=== PATIENT | male | born 1960 | race Caucasian/White ===

== ENCOUNTER 2018-09-15 23:50 | Emergency (ER) | payer MEDICAID ==
[~2018-09-15] VITALS: Ht 185.4 cm; Wt 97.5 kg
[2018-09-16 00:32] VITALS: BP 139/93
[2018-09-16 01:23] LABS: Basophils # (auto) 0.1 uL; Basophils % (auto) 1.4 % (0.0-2.0); Eosinophils # (auto) 0 uL; Eosinophils % (auto) 0.1 % (0.0-7.0); Hematocrit 47.4 % (41.0-53.0); Hemoglobin 16.3 g/dL (13.5-17.5); Lymphocytes # (auto) 1.5 uL; Lymphocytes % (auto) 17.2 % (10.0-50.0); Mean Corpuscular Hemoglobin 30.6 pg (28.0-32.0); Mean Corpuscular Hgb Conc. 34.4 g/dL (32.0-36.0); Monocytes # (auto) 0.7 uL; Monocytes % (auto) 7.8 % (0.0-12.0); Neutrophils # (auto) 6.3 uL; Neutrophils % (auto) 73.5 % (37.0-80.0); Platelet Count (auto) 207 10^3/uL (140-450); Red Blood Cells 5.32 10^6/uL (4.5-5.90); Red Cell Distribution Width 13.6 % (11.8-14.3); White Blood Cell 8.6 10^3/uL (4.4-10.8)
[2018-09-16 01:28] LABS: Urine Bacteria NONE SEEN /hpf (None Seen); Urine Blood Negative /uL (Negative); Urine Mucus FEW (None Seen); Urine Specific Gravity 1.039 (1.001-1.035); Urine WBC <1 /hpf (0 - 3)
[2018-09-16 01:43] LABS: Alcohol, Urine < 3.0 mg/dL (0-5); Amphetamine Screen, Urine POSITIVE (NEGATIVE); Barbiturate Scree,Urine NEGATIVE (NEGATIVE); Benzodiazephine Screen, Urine NEGATIVE (NEGATIVE); Cannabinoid Screen, Urine NEGATIVE (NEGATIVE); Cocaine Screen, Urine NEGATIVE (NEGATIVE); Phencyclidine Screen, Urine NEGATIVE (NEGATIVE)
[2018-09-16 01:46] LABS: Albumin 4.4 g/dL (3.4-5.0); Anion Gap 11 (5-15); Blood Alcohol < 3.0 mg/dL (0-5); Blood Urea Nitrogen 14 mg/dL (7-18); Calcium 9.4 mg/dL (8.5-10.1); Carbon Dioxide 21 mmol/L (21-32); Chloride 104 mmol/L (98-107); Glucose 245 mg/dL (74-106); Potassium 3.6 mmol/L (3.5-5.1); Sodium 136 mmol/L (136-145)
[2018-09-16 01:48] LABS: Alanine Aminotransferase 26 U/L (16-61); Aspartate Aminotransferase 22 U/L (15-37); BUN/Creatinine Ratio 11.6; GFR African American 79 mL/min; GFR Non-African American 65 mL/min
[2018-09-16 01:49] LABS: Opiate Scree,Urine NEGATIVE (NEGATIVE)
[2018-09-16 01:50] LABS: Salicylate < 1.7 mg/dL (2.8-20.0)
[2018-09-16 01:56] LABS: Alkaline Phosphatase 69 U/L (45-117); Total Protein 9.8 g/dL (6.4-8.2)
[2018-09-16 02:05] LABS: Acetaminophen < 2.0 ug/mL (10-30)
== END 2018-09-16 05:47 | disposition left against medical advice (07) ==
LOC: ER 23:50
DX: F22 Delusional disorders (principal); Z53.21 Procedure and treatment not carried out due to patient leaving prior to being seen by health care provider
CPT/HCPCS: 36415; 80053; 80307; 80320; 80329; 81001; 85025

== ENCOUNTER 2019-10-18 09:49 | Inpatient (IN) | payer MEDICAID ==
[~2019-10-18] VITALS: Ht 185.4 cm; Wt 115.1 kg
[2019-10-18] MEDS ORDERED: ACETAMINOPHEN 325 MG TAB PO ONE (10:29)
[2019-10-18] MEDS ORDERED: ACETAMINOPHEN 650 mg PER 20 mL UD PO ONE (10:30)
[2019-10-18] MEDS ORDERED: SODIUM CHLORIDE 0.9% 1,000 ML IV ONE (10:50)
[2019-10-18] MEDS ORDERED: DexAMETHasone SOD PHOS 10MG/1ML VIAL INJ IV ONE (11:00)
[2019-10-18] MEDS ORDERED: hydrOXYchloroQUINE SULFATE 200 MG TAB PO ONE (11:30)
[2019-10-18] MEDS ORDERED: DOXYCYCLINE 100 MG TAB/CAP PO ONE (11:30)
[2019-10-18 12:26] LABS: Basophils # (auto) 0 10 ^3/uL (0-0.2); Basophils % (auto) 0.4 % (0.0-2.0); Eosinophils # (auto) 0 10 ^3/uL (0-0.8); Hematocrit 42.3 % (41.0-53.0); Hemoglobin 14.2 g/dL (13.5-17.5); Lymphocytes # (auto) 0.4 10 ^3/uL (0.4-5.4); Lymphocytes % (auto) 10.4 % (10.0-50.0); Mean Corpuscular Hemoglobin 28.9 pg (28.0-32.0); Mean Corpuscular Hgb Conc. 33.5 g/dL (32.0-36.0); Mean Corpuscular Volume 86.2 fL (80.0-100.0); Monocytes # (auto) 0.2 10 ^3/uL (0-1.3); Monocytes % (auto) 4.3 % (0.0-12.0); Neutrophils # (auto) 3.5 10 ^3/uL (1.6-8.6); Neutrophils % (auto) 84.9 % (37.0-80.0); Nucleated Red Blood Cells % 0.1 %; Platelet Count (auto) 177 10^3/uL (140-450); Red Cell Distribution Width 12.9 % (11.8-14.3); White Blood Cell 4.1 10^3/uL (4.4-10.8)
[2019-10-18 12:45] LABS: Albumin 2.6 g/dL (3.4-5.0); Anion Gap 11 (5-15); BUN/Creatinine Ratio 10.5; Blood Urea Nitrogen 9 mg/dL (7-18); Calcium 7.7 mg/dL (8.5-10.1); Carbon Dioxide 20 mmol/L (21-32); Chloride 97 mmol/L (98-107); GFR African American 117 mL/min; GFR Non-African American 97 mL/min; Glucose 275 mg/dL (74-106); Potassium 3.4 mmol/L (3.5-5.1); Sodium 128 mmol/L (136-145)
[2019-10-18 12:49] LABS: Alanine Aminotransferase 33 U/L (16-61); Alkaline Phosphatase 59 U/L (45-117); Aspartate Aminotransferase 40 U/L (15-37); Bilirubin, Total 0.7 mg/dL (0.2-1.0); Total Protein 7.8 g/dL (6.4-8.2)
[2019-10-18 13:07] LABS: CRP High Sensitivity 10.1 mg/dL (< 0.3)
[2019-10-18] MEDS ORDERED: MORPHINE SULF INJ 2 MG/ML SYRINGE 1ML IV PRN (15:15)
[2019-10-18] MEDS ORDERED: NITROGLYCERIN 0.4 MG SL TAB SL PRN (15:15)
[2019-10-18] MEDS ORDERED: DEXTROSE (50%) 50ML SYRG IV PRN (15:15)
[2019-10-18] MEDS ORDERED: ACETAMINOPHEN 500 MG TAB PO PRN (15:15)
[2019-10-18 15:38] VITALS: BP 121/73
[2019-10-18] MEDS: SOD CHL 0.9%/ KCL 20MEQ 1,000 ML IV SCH (16:41)
[2019-10-18] MEDS ORDERED: METF-372 PO (16:52)
[2019-10-18] MEDS ORDERED: DIVA1TAB59 PO (16:52)
[2019-10-18] MEDS ORDERED: GLIP5TAB12 PO (16:52)
[2019-10-18] MEDS ORDERED: SERT100T PO (16:52)
[2019-10-18] MEDS ORDERED: QUET200T30 PO (16:54)
[2019-10-18] MEDS ORDERED: ERGO1CAP12 PO (17:01)
[2019-10-18] MEDS ORDERED: IBUP200C95 PO (17:02)
[2019-10-18] MEDS: ACCU-CHEK COMFORT CURVE STRIP VI SCH (19:46)
[2019-10-18] MEDS: InsuLIN REG 1unit/0.01ml Soln (100units/ml) SC SCH (19:59)
--- NOTE | 2019-10-18 20:55 | NUR ---
Telemetry admit from ER ORESTES BISHOP admitted to Telemetry unit. Patient oriented to Vishal Cuevas, primary RN, unit, room, bed, and unit policies regarding patient care and visiting hours. Patient now on continuous telemetry monitoring, tele box #10 and telemetry reading on arrival to unit is SR 65. Patient placed on 2L oxygen, weighed by bed scale and encouraged to call if they need something. Patient denies any pain. He states that he feels SOB. Vital sign: Temp 97.8, HR 60, BP 120/75, RR 20, and O2 95. All questions and concerns addressed, patient verbalized understanding.
[2019-10-18 21:00] VITALS: BP 120/75
[2019-10-18] MEDS: DOXYCYCLINE 100MG/250ML 250 ML IV SCH (22:00)
[2019-10-18 23:06] VITALS: BP 120/75
[2019-10-18] MEDS: ALBUTEROL SULF HFA 90MCG INH 200DOSE IN SCH (23:10)
[2019-10-18] MEDS: BUDESONIDE (INHALATION) 180 MCG IH IN SCH (23:10)
[2019-10-19] VITALS (7 sets, daily range): BP systolic 108–115; BP diastolic 63–76
[2019-10-19] MEDS: ACCU-CHEK COMFORT CURVE STRIP VI SCH ×4 (00:15→18:00)
[2019-10-19] MEDS: InsuLIN REG 1unit/0.01ml Soln (100units/ml) SC SCH ×4 (00:15→17:59)
[2019-10-19] MEDS: BUDESONIDE (INHALATION) 180 MCG IH IN SCH ×2 (05:46→22:00)
[2019-10-19] MEDS: ALBUTEROL SULF HFA 90MCG INH 200DOSE IN SCH ×3 (05:46→22:00)
[2019-10-19 08:05] LABS: Urine Bacteria NONE SEEN /hpf (None Seen); Urine Blood Negative /uL (Negative); Urine Specific Gravity 1.032 (1.001-1.035); Urine WBC 1 /hpf (0 - 3)
[2019-10-19] MEDS: SOD CHL 0.9%/ KCL 20MEQ 1,000 ML IV SCH (08:23)
[2019-10-19] MEDS: DexAMETHasone SOD PHOS 10MG/1ML VIAL INJ IV SCH (09:55)
[2019-10-19] MEDS: DOXYCYCLINE 100MG/250ML 250 ML IV SCH ×2 (09:55→21:57)
[2019-10-19] MEDS: ASCORBIC ACID 1,000 MG TAB PO SCH (09:56)
[2019-10-19] MEDS: ZINC SULFATE 220mg CAP or TAB PO SCH (09:56)
[2019-10-19] MEDS: ENOXAPARIN SOD 40 MG/0.4 ML SYRINGE SC SCH (09:56)
[2019-10-19] MEDS: CHOLECALCIFEROL (VITD3) 2,000 UNIT CAP PO SCH (09:56)
--- NOTE | 2019-10-19 12:15 | NUR ---
pt refused to sign consent for remdesivir, pt stated he do not see the benefit of the medication, pharmacy made aware. Will notify .
[2019-10-19 12:25] LABS: Basophils # (auto) 0 10 ^3/uL (0-0.2); Basophils % (auto) 0.2 % (0.0-2.0); Eosinophils # (auto) 0 10 ^3/uL (0-0.8); Hematocrit 41.5 % (41.0-53.0); Lymphocytes # (auto) 0.7 10 ^3/uL (0.4-5.4); Lymphocytes % (auto) 10.7 % (10.0-50.0); Mean Corpuscular Hemoglobin 28.9 pg (28.0-32.0); Mean Corpuscular Hgb Conc. 33.6 g/dL (32.0-36.0); Monocytes # (auto) 0.3 10 ^3/uL (0-1.3); Neutrophils # (auto) 5.4 10 ^3/uL (1.6-8.6); Neutrophils % (auto) 84.1 % (37.0-80.0); Platelet Count (auto) 206 10^3/uL (140-450); Red Blood Cells 4.83 10^6/uL (4.5-5.90); Red Cell Distribution Width 13.1 % (11.8-14.3); White Blood Cell 6.4 10^3/uL (4.4-10.8)
[2019-10-19 12:42] LABS: Albumin 2.5 g/dL (3.4-5.0); Calcium 8.4 mg/dL (8.5-10.1)
[2019-10-19 12:45] LABS: BUN/Creatinine Ratio 20.7; Bilirubin, Total 0.5 mg/dL (0.2-1.0); Total Protein 8.2 g/dL (6.4-8.2)
--- NOTE | 2019-10-19 13:30 | NUR ---
Dr. Bellamy at bedside made aware pt refused remdesivir because he do not see the benefits of the medication, Dr. Bellamy explained why he ordered the medication, pt verbalized understanding and agree to get the medication. pt refused convalescent plasma transfusion, Dr. Bellamy is aware.
--- NOTE | 2019-10-19 13:35 | NUR ---
Dr. Bellamy ordered to continue pt's home medication divalproex, glipizide, and zoloft but not for metformin and seroquel.
--- NOTE | 2019-10-19 13:40 | NUR ---
pt sign the consent for Remdesivir medication.
[2019-10-19] MEDS ORDERED: REMDESIVIR 200 MG in NS 210ml LOADING DOSE ADULT IV ONE (16:00)
--- NOTE | 2019-10-19 19:12 | NUR ---
Opening Shift Note Assumed care of patient. Patient is awake, alert, and oriented x 4. No S/S of respiratory distress/SOB and pain noted or reported. Respirations are regular and non-labored. On 1 LPM via NC with SpO2 95%. Bed in lowest position, brakes locked, side rail up X 2, call light within reach. POC discussed with the patient. Patient instructed to call for assistance as needed. Will continue to monitor for changes Q1hr and PRN.
--- NOTE | 2019-10-19 19:15 | NUR ---
diet texture changed to chopped fine, pt has no denture and unable to chew solid foods.
[2019-10-19] MEDS: INSULIN 70/30 1unit/0.01ml Susp (100units/ml) SC SCH (22:03)
[2019-10-20] VITALS (9 sets, daily range): BP systolic 91–149; BP diastolic 55–84
[2019-10-20] MEDS: ACCU-CHEK COMFORT CURVE STRIP VI SCH ×4 (00:10→17:36)
[2019-10-20] MEDS: InsuLIN REG 1unit/0.01ml Soln (100units/ml) SC SCH ×4 (00:14→17:38)
[2019-10-20] MEDS: ALBUTEROL SULF HFA 90MCG INH 200DOSE IN SCH ×3 (06:43→22:04)
[2019-10-20 07:00] LABS: Basophils # (auto) 0 10 ^3/uL (0-0.2); Basophils % (auto) 0.2 % (0.0-2.0); Eosinophils # (auto) 0 10 ^3/uL (0-0.8); Hemoglobin 14.2 g/dL (13.5-17.5); Lymphocytes # (auto) 0.7 10 ^3/uL (0.4-5.4); Lymphocytes % (auto) 9.3 % (10.0-50.0); Mean Corpuscular Hemoglobin 29.3 pg (28.0-32.0); Mean Corpuscular Hgb Conc. 33.8 g/dL (32.0-36.0); Mean Corpuscular Volume 86.7 fL (80.0-100.0); Monocytes # (auto) 0.4 10 ^3/uL (0-1.3); Monocytes % (auto) 5.4 % (0.0-12.0); Neutrophils # (auto) 6.1 10 ^3/uL (1.6-8.6); Neutrophils % (auto) 85.1 % (37.0-80.0); Nucleated Red Blood Cells % 0.2 %; Platelet Count (auto) 244 10^3/uL (140-450); Red Blood Cells 4.84 10^6/uL (4.5-5.90); Red Cell Distribution Width 13.3 % (11.8-14.3); White Blood Cell 7.1 10^3/uL (4.4-10.8)
[2019-10-20 07:18] LABS: Albumin 2.5 g/dL (3.4-5.0); Calcium 8.5 mg/dL (8.5-10.1); Magnesium 2.7 mg/dL (1.6-2.6); Potassium 3.4 mmol/L (3.5-5.1)
[2019-10-20 07:26] LABS: BUN/Creatinine Ratio 19.3; Bilirubin, Total 0.5 mg/dL (0.2-1.0); CRP High Sensitivity 6.49 mg/dL (< 0.3); Total Protein 7.9 g/dL (6.4-8.2)
[2019-10-20] MEDS: BUDESONIDE (INHALATION) 180 MCG IH IN SCH ×2 (07:42→22:04)
[2019-10-20] MEDS ORDERED: POTASSIUM CHL 20 Meq TABLET PO ONE (10:00)
[2019-10-20] MEDS: DOXYCYCLINE 100MG/250ML 250 ML IV SCH ×2 (10:50→21:56)
[2019-10-20] MEDS: DexAMETHasone SOD PHOS 10MG/1ML VIAL INJ IV SCH (10:50)
[2019-10-20] MEDS: ZINC SULFATE 220mg CAP or TAB PO SCH (10:51)
[2019-10-20] MEDS: ASCORBIC ACID 1,000 MG TAB PO SCH (10:51)
[2019-10-20] MEDS: CHOLECALCIFEROL (VITD3) 2,000 UNIT CAP PO SCH (10:51)
[2019-10-20] MEDS: glipiZIDE 5 MG TAB PO SCH (10:51)
[2019-10-20] MEDS: SERTRALINE HCL 50 MG TAB PO SCH (10:52)
[2019-10-20] MEDS: INSULIN 70/30 1unit/0.01ml Susp (100units/ml) SC SCH ×2 (10:52→21:59)
[2019-10-20] MEDS: ENOXAPARIN SOD 40 MG/0.4 ML SYRINGE SC SCH (10:52)
--- NOTE | 2019-10-20 16:30 | NUR ---
IV INITIATED TO R W 20 GAUGE ON 1ST ATTEMPT. PATIENT TOLERATED WELL. PRIOR IV DISCONTINUED DUE TO INFILTRATION.
[2019-10-20] MEDS: REMDESIVIR 100mg in NS 230ml DAILYx4DAYS (NO VENT) IV SCH (16:49)
--- NOTE | 2019-10-20 19:20 | NUR ---
Opening Shift Note Assumed care of patient. Patient is awake, alert, and oriented x 4. No S/S of respiratory distress/SOB and pain noted or reported. Respirations are regular and non-labored. On 1 LPM via NC. Bed in lowest position, brakes locked, side rail up X 2, call light within reach. POC discussed with the patient. Patient instructed to call for assistance as needed. Will continue to monitor for changes Q1hr and PRN.
[2019-10-21] VITALS (10 sets, daily range): BP systolic 96–120; BP diastolic 50–78
[2019-10-21] MEDS: ACCU-CHEK COMFORT CURVE STRIP VI SCH ×4 (00:13→18:00)
[2019-10-21] MEDS: InsuLIN REG 1unit/0.01ml Soln (100units/ml) SC SCH ×4 (00:26→18:01)
[2019-10-21] MEDS: ALBUTEROL SULF HFA 90MCG INH 200DOSE IN SCH ×3 (06:19→21:14)
[2019-10-21 07:52] LABS: Albumin 2.3 g/dL (3.4-5.0); Calcium 8.2 mg/dL (8.5-10.1); Potassium 4.1 mmol/L (3.5-5.1)
[2019-10-21 07:58] LABS: BUN/Creatinine Ratio 15.9; Bilirubin, Total 0.5 mg/dL (0.2-1.0); Total Protein 7.2 g/dL (6.4-8.2)
[2019-10-21] MEDS: BUDESONIDE (INHALATION) 180 MCG IH IN SCH ×2 (08:20→23:13)
[2019-10-21] MEDS: DexAMETHasone SOD PHOS 10MG/1ML VIAL INJ IV SCH (10:42)
[2019-10-21] MEDS: glipiZIDE 5 MG TAB PO SCH (10:42)
[2019-10-21] MEDS: ZINC SULFATE 220mg CAP or TAB PO SCH (10:42)
[2019-10-21] MEDS: DOXYCYCLINE 100MG/250ML 250 ML IV SCH ×2 (10:42→22:21)
[2019-10-21] MEDS: CHOLECALCIFEROL (VITD3) 2,000 UNIT CAP PO SCH (10:43)
[2019-10-21] MEDS: ASCORBIC ACID 1,000 MG TAB PO SCH (10:43)
[2019-10-21] MEDS: SERTRALINE HCL 50 MG TAB PO SCH (10:43)
[2019-10-21] MEDS: INSULIN 70/30 1unit/0.01ml Susp (100units/ml) SC SCH ×2 (10:43→22:45)
[2019-10-21] MEDS: ENOXAPARIN SOD 40 MG/0.4 ML SYRINGE SC SCH (10:44)
--- NOTE | 2019-10-21 11:10 | NUR ---
Darcy HERNANDEZ AT BEDSIDE. INFORMED OF PATIENTS HEART RATE DROPPING TO 38-39BPM WHEN SLEEPING. RECEIVED ORDER FOR EKG. STATED OK TO CONTINUE REMDESIVIR.
--- NOTE | 2019-10-21 13:18 | NUR ---
Nutrition Assessment Notes Please refer to link for full assessment notes. Est Energy needs: [id number] kcals (17-20 kcal/kgBW) Est Protein needs: 125-167 gms/day (1.5-2.0 gm/kgIBW) Will continue to monitor and reassess prn. Addendum: 10/21/19 at [address] Amended: Links added.
--- NOTE | 2019-10-21 16:42 | NUR ---
CALLED PHARMACY REGARDING REMDESIVIR. STATED THEY WILL SEND "SOON".
[2019-10-21] MEDS: REMDESIVIR 100mg in NS 230ml DAILYx4DAYS (NO VENT) IV SCH (17:05)
--- NOTE | 2019-10-21 19:20 | NUR ---
Opening Shift Note Assumed care of patient. Patient is awake, alert, and oriented x 4. No S/S of respiratory distress/SOB and pain noted. Respirations are regular and non-labored, saturating at 93% on room air. Bed in lowest position, brakes locked, side rail up X 2, call light within reach. POC discussed with the patient. Patient instructed to call for assistance as needed. Will continue to monitor for changes Q1hr and PRN.
--- NOTE | 2019-10-21 21:11 | NUR ---
RT NOTE PT WAS SEEN BY RT FOR MDI TX. PT TOLERATES WELL VIA SPACER. PT RINSED MOUTH WITH WATER POST MDI TX. HR 65, RR 18, BS CLEAR/DIMINISHED, POX 95% ON ROOM AIR. CONT ORDERED Addendum: 10/21/19 at 2311 by Macarena Avalos RT Amended: Links added.
[2019-10-22] VITALS (8 sets, daily range): BP systolic 99–127; BP diastolic 61–76
[2019-10-22] MEDS: InsuLIN REG 1unit/0.01ml Soln (100units/ml) SC SCH ×4 (00:46→17:48)
[2019-10-22] MEDS: ACCU-CHEK COMFORT CURVE STRIP VI SCH ×4 (05:36→16:57)
--- NOTE | 2019-10-22 07:04 | NUR ---
Patient is alert and awake, no distress noted saturating at 98% on room air. Patient denies pain.
[2019-10-22] MEDS: ALBUTEROL SULF HFA 90MCG INH 200DOSE IN SCH ×3 (07:25→22:05)
[2019-10-22] MEDS: BUDESONIDE (INHALATION) 180 MCG IH IN SCH ×2 (07:25→22:05)
[2019-10-22 07:34] LABS: Basophils # (auto) 0 10 ^3/uL (0-0.2); Basophils % (auto) 0.1 % (0.0-2.0); Eosinophils # (auto) 0 10 ^3/uL (0-0.8); Eosinophils % (auto) 0.5 % (0.0-7.0); Hemoglobin 13.7 g/dL (13.5-17.5); Lymphocytes % (auto) 22.1 % (10.0-50.0); Mean Corpuscular Hemoglobin 29.1 pg (28.0-32.0); Mean Corpuscular Hgb Conc. 33.5 g/dL (32.0-36.0); Mean Corpuscular Volume 86.7 fL (80.0-100.0); Monocytes # (auto) 0.5 10 ^3/uL (0-1.3); Neutrophils % (auto) 67.3 % (37.0-80.0); Nucleated Red Blood Cells % 0.2 %; Platelet Count (auto) 243 10^3/uL (140-450); Red Blood Cells 4.72 10^6/uL (4.5-5.90); White Blood Cell 4.5 10^3/uL (4.4-10.8)
[2019-10-22 07:55] LABS: Albumin 2.3 g/dL (3.4-5.0); Calcium 8.5 mg/dL (8.5-10.1)
[2019-10-22 07:58] LABS: BUN/Creatinine Ratio 14.1; Bilirubin, Total 0.5 mg/dL (0.2-1.0); Total Protein 7.2 g/dL (6.4-8.2)
[2019-10-22] MEDS: ZINC SULFATE 220mg CAP or TAB PO SCH (09:45)
[2019-10-22] MEDS: glipiZIDE 5 MG TAB PO SCH (09:45)
[2019-10-22] MEDS: DOXYCYCLINE 100MG/250ML 250 ML IV SCH ×2 (09:45→22:45)
[2019-10-22] MEDS: DexAMETHasone SOD PHOS 10MG/1ML VIAL INJ IV SCH (09:45)
[2019-10-22] MEDS: CHOLECALCIFEROL (VITD3) 2,000 UNIT CAP PO SCH (09:46)
[2019-10-22] MEDS: ENOXAPARIN SOD 40 MG/0.4 ML SYRINGE SC SCH (09:46)
[2019-10-22] MEDS: ASCORBIC ACID 1,000 MG TAB PO SCH (09:46)
[2019-10-22] MEDS: SERTRALINE HCL 50 MG TAB PO SCH (09:46)
[2019-10-22] MEDS: INSULIN 70/30 1unit/0.01ml Susp (100units/ml) SC SCH ×2 (09:47→22:46)
[2019-10-22] MEDS: REMDESIVIR 100mg in NS 230ml DAILYx4DAYS (NO VENT) IV SCH (16:31)
--- NOTE | 2019-10-22 19:20 | NUR ---
Opening note Assumed care of patient. Patient is alert and orientated x4. No sob or distress noted. Patient is on room air. Bed locked in lowest position, side rails up x2. Patient is eating at bedside. POC discussed. NO questions at this time. Call light within reach. Will continue to monitor.
[2019-10-22 19:59] LABS: BUN/Creatinine Ratio 18.4; Calcium 8.7 mg/dL (8.5-10.1); Magnesium 2.3 mg/dL (1.6-2.6); Potassium 3.9 mmol/L (3.5-5.1)
[2019-10-23] MEDS: InsuLIN REG 1unit/0.01ml Soln (100units/ml) SC SCH ×4 (00:05→17:31)
[2019-10-23] MEDS: ACCU-CHEK COMFORT CURVE STRIP VI SCH ×4 (00:09→17:31)
[2019-10-23 05:00] VITALS: BP 102/54
--- NOTE | 2019-10-23 07:31 | NUR ---
closing note endorsed care to day shift rn no sob or distress noted
[2019-10-23] MEDS: BUDESONIDE (INHALATION) 180 MCG IH IN SCH (07:34)
[2019-10-23] MEDS: ALBUTEROL SULF HFA 90MCG INH 200DOSE IN SCH ×2 (07:34→15:22)
--- NOTE | 2019-10-23 07:54 | NUR ---
OPENING SHIFT NOTE Assumed care of patient. PT is awake and alert. No S/S of distress/SOB or pain. Instructed on POC and to call for assist PRN, will continue to monitor for changes Q1hr and PRN.
[2019-10-23 09:00] VITALS: BP 106/52
[2019-10-23 09:26] LABS: Albumin 2.4 g/dL (3.4-5.0); Calcium 8.9 mg/dL (8.5-10.1); Potassium 3.7 mmol/L (3.5-5.1)
[2019-10-23 09:29] LABS: BUN/Creatinine Ratio 16.7; Bilirubin, Total 0.5 mg/dL (0.2-1.0); Total Protein 7.2 g/dL (6.4-8.2)
[2019-10-23] MEDS: DexAMETHasone SOD PHOS 10MG/1ML VIAL INJ IV SCH (10:00)
[2019-10-23] MEDS: DOXYCYCLINE 100MG/250ML 250 ML IV SCH (11:38)
[2019-10-23] MEDS: ASCORBIC ACID 1,000 MG TAB PO SCH (11:38)
[2019-10-23] MEDS: CHOLECALCIFEROL (VITD3) 2,000 UNIT CAP PO SCH (11:38)
[2019-10-23] MEDS: ENOXAPARIN SOD 40 MG/0.4 ML SYRINGE SC SCH (11:39)
[2019-10-23] MEDS: SERTRALINE HCL 50 MG TAB PO SCH (11:39)
[2019-10-23] MEDS: ZINC SULFATE 220mg CAP or TAB PO SCH (11:39)
[2019-10-23] MEDS: glipiZIDE 5 MG TAB PO SCH (11:39)
[2019-10-23] MEDS: INSULIN 70/30 1unit/0.01ml Susp (100units/ml) SC SCH (11:42)
[2019-10-23 13:05] VITALS: BP 121/64
--- NOTE | 2019-10-23 13:06 | NUR ---
DR HERNANDEZ IN TO SEE PT. DISCUSSED INSULIN WITH PT. PT WILL DISCUSS WITH PCP. PT STATED HE HAS METFORMIN AND GLIPIZIDE AT HOME. PT ADVISED TO MONITOR BLOOD GLUCOSE AT HOME.
--- NOTE | 2019-10-23 13:08 | NUR ---
DC PLAN DISCUSSED WITH PT. PER PT WILL BE DISCHARGED AFTER REMDESIVIR ADMINISTRATION.
--- NOTE | 2019-10-23 16:08 | NUR ---
PRE REMDESIVIR VITALS: T97.8, HR54, RR20, 0293%, BP104/66
[2019-10-23] MEDS: REMDESIVIR 100mg in NS 230ml DAILYx4DAYS (NO VENT) IV SCH (16:13)
--- NOTE | 2019-10-23 16:25 | NUR ---
INTRA REMDESIVIR VITALS: T98.1, HR55, RR18, 0294%, BP101/64
[2019-10-23 16:52] VITALS: BP 101/64
[2019-10-23 17:16] VITALS: BP 104/66
--- NOTE | 2019-10-23 17:46 | NUR ---
POST REMDESIVIR VITALS: T97.9, HR55, RR18, 0293%, BP108/64. NO S/S OF DISTRESS NOTED. PT TOLERATED WELL. WILL PROCEED WITH DC.
== END 2019-10-23 18:22 | disposition home or self-care (01) | DRG 720 ==
LOC: ER 09:49 → TELE 09:50 → TELE-EAST 20:50
PROVIDERS: ADMIT Internal Medicine; ATTEND Internal Medicine
DX: A41.89 Other specified sepsis (principal); U07.1 COVID-19; J12.89 Other viral pneumonia; J96.01 Acute respiratory failure with hypoxia; F31.9 Bipolar disorder, unspecified; E87.1 Hypo-osmolality and hyponatremia; E86.0 Dehydration; E66.9 Obesity, unspecified; R00.0 Tachycardia, unspecified; E11.9 Type 2 diabetes mellitus without complications; E03.9 Hypothyroidism, unspecified; F17.210 Nicotine dependence, cigarettes, uncomplicated; F20.9 Schizophrenia, unspecified; Z68.33 Body mass index [BMI] 33.0-33.9, adult; E44.0 Moderate protein-calorie malnutrition
CPT/HCPCS: 36415; 71045; 80048; 80053; 81001; 82306; 82728; 82962; 83036; 83615; 83735; 84439; 84443; 84484; 85025; 85379; 86141; 93005; 94640; G0378; J1100; J1815; J3490

== ENCOUNTER 2021-03-01 09:15 | Inpatient (IN) | payer MEDICAID ==
[~2021-03-01] VITALS: Ht 188 cm; Wt 148.0 kg
[2021-03-01] VITALS (7 sets, daily range): BP systolic 63–79; BP diastolic 25–37
[~2021-03-01 09:15] MED LIST: DIVA1TAB59 PO; ERGO1CAP12 PO; GLIP5TAB12 PO; IBUP200C95 PO; METF-372 PO; QUET200T30 PO; SERT100T PO
[2021-03-01] MEDS ORDERED: NOREPINEPHRINE 8 MG/250ML KIT 250 ML IV ONE (09:23)
[2021-03-01] MEDS: MIDAZOLAM DRIP 50 mg/50mL 50 ML IV SCH (09:24)
[2021-03-01] MEDS: NOREPINEPHRINE 8 MG/250ML KIT 250 ML IV SCH (09:27)
[2021-03-01] MEDS ORDERED: NALOXONE HCL 0.4 MG/ML VIAL IV ONE (09:30)
[2021-03-01] MEDS ORDERED: FLUMAZENIL 0.1 MG/ML INJ 10ML MDV IV ONE (09:30)
[2021-03-01 09:51] LABS: Urine Bacteria NONE SEEN /hpf (None Seen); Urine Blood Negative /uL (Negative); Urine Specific Gravity 1.015 (1.001-1.035); Urine WBC <1 /hpf (0 - 3)
[2021-03-01 09:56] LABS: Hematocrit 38.5 % (41.0-53.0); Mean Corpuscular Hemoglobin 29.4 pg (28.0-32.0); Mean Corpuscular Hgb Conc. 31.1 g/dL (32.0-36.0); Mean Corpuscular Volume 94.7 fL (80.0-100.0); Red Blood Cells 4.06 10^6/uL (4.5-5.90); Red Cell Distribution Width 14.3 % (11.8-14.3); White Blood Cell 10.5 10^3/uL (4.4-10.8)
[2021-03-01 10:11] LABS: Alcohol, Urine < 3.0 mg/dL (0-10); Amphetamine Screen, Urine POSITIVE (NEGATIVE); Barbiturate Scree,Urine NEGATIVE (NEGATIVE); Benzodiazephine Screen, Urine NEGATIVE (NEGATIVE); Cannabinoid Screen, Urine NEGATIVE (NEGATIVE); Cocaine Screen, Urine NEGATIVE (NEGATIVE)
[2021-03-01] MEDS ORDERED: PHENYLEPHRINE IV 250 ML IV ONE (10:14)
[2021-03-01 10:17] LABS: Basophils % (manual) 0 (0.0-2.0); Blast Cells 0; Metamyelocytes % 0; Promyelocytes % 0; Reactive Lymphocytes 0
[2021-03-01 10:19] LABS: Anion Gap 18 (5-15); Blood Alcohol < 3.0 mg/dL (0-5); Blood Urea Nitrogen 15 mg/dL (7-18); Calcium 7.9 mg/dL (8.5-10.1); Carbon Dioxide 15 mmol/L (21-32); Chloride 103 mmol/L (98-107); Glucose 322 mg/dL (74-106); Magnesium 2.2 mg/dL (1.6-2.6); Potassium 4.4 mmol/L (3.5-5.1); Sodium 136 mmol/L (136-145)
[2021-03-01 10:22] LABS: Opiate Scree,Urine NEGATIVE (NEGATIVE); Phencyclidine Screen, Urine NEGATIVE (NEGATIVE)
[2021-03-01 10:23] LABS: Alanine Aminotransferase 17 U/L (16-61); Alkaline Phosphatase 53 U/L (45-117); Aspartate Aminotransferase 45 U/L (15-37); BUN/Creatinine Ratio 8.8; Bilirubin, Total 0.2 mg/dL (0.2-1.0); GFR African American 53 mL/min; GFR Non-African American 44 mL/min; Total Protein 6.4 g/dL (6.4-8.2)
[2021-03-01] MEDS: PHENYLEPHRINE IV 250 ML IV SCH ×3 (10:30→20:31)
[2021-03-01] MEDS ORDERED: VASOPRESSIN 20 UNIT/ML ONE (10:32)
[2021-03-01 10:36] LABS: Acetaminophen < 2.0 ug/mL (10-30); Salicylate < 1.7 mg/dL (2.8-20.0)
[2021-03-01] MEDS: VASOPRESSIN 50 UNITS in D5W 5% 247.5 ML IV SCH (10:40)
[2021-03-01] MEDS ORDERED: SODIUM CHLORIDE 0.9% 3,000 ML IV ONE (10:45)
[2021-03-01] MEDS ORDERED: DOPamine 1600MCG/ML D5W 250 ML IV ONE ×3 (10:52→23:51)
[2021-03-01] MEDS ORDERED: SODIUM BICARBONATE 8.4 % INJ 50ML VIAL IV ONE ×2 (11:00→21:45)
[2021-03-01] MEDS ORDERED: SODIUM BICARBONATE 8.4% INJ 50ML SYRINGE ONE ×3 (11:00→14:44)
[2021-03-01 11:14] LABS: Band Neutrophils % (manual) 4; Eosinophils % (manual) 5 (0-7); Lymphocytes % (manual) 17 (10.0-50.0); Monocytes % (manual) 3 (0-12); Myelocytes % 1
[2021-03-01] MEDS ORDERED: EPINEPHrine HCL 0 ML IV ONE (12:13)
[2021-03-01] MEDS ORDERED: EPINEPHrine HCL 250 ML IV ONE ×2 (12:30→19:47)
[2021-03-01] MEDS ORDERED: SODIUM BICARBONATE 50ML VIAL 150 ML in SOD CHL 0.45% 1,000 ML IV ONE (13:45)
[2021-03-01] MEDS ORDERED: methylPREDNISolone SOD SUCC 125 MG/2 ML VL IV ONE (16:45)
[2021-03-01] MEDS ORDERED: INSULIN LANTUS (GLARGINE) 1 /0.01ml (100units/ml) SC ONE (16:45)
[2021-03-01] MEDS ORDERED: DEXTROSE (50%) 50ML SYRG IV PRN ×2 (16:45→18:00)
[2021-03-01] MEDS ORDERED: InsuLIN R (HUMAN) 100 UNITS in SODIUM CHL 0.9% 99 ML IV SCH ×2 (16:45→18:15)
[2021-03-01] MEDS ORDERED: HYDROCORTISONE SOD SUCC 100 MG/2ML INJ VIAL IV ONE (17:15)
[2021-03-01] MEDS ORDERED: ACCU-CHEK COMFORT CURVE STRIP VI SCH ×2 (18:00→19:30)
[2021-03-01] MEDS ORDERED: TEMAZEPAM 15 MG CAP PO PRN (18:00)
[2021-03-01] MEDS ORDERED: NITROGLYCERIN 0.4 MG SL TAB SL PRN (18:00)
[2021-03-01] MEDS ORDERED: SODIUM CHLORIDE 0.9% 1,000 ML IV SCH (18:00)
[2021-03-01] MEDS ORDERED: HYDROcodone-ACET 5/325MG TAB PO PRN (18:00)
[2021-03-01] MEDS ORDERED: MORPHINE SULFATE INJECTION 2 MG/ML SYRG IV PRN ×2 (18:00)
[2021-03-01] MEDS ORDERED: ACETAMINOPHEN 325 MG TAB PO PRN (18:00)
[2021-03-01] MEDS: ACCU-CHEK COMFORT CURVE STRIP VI SCH (20:00)
[2021-03-01] MEDS: InsuLIN REG 1unit/0.01ml Soln (100units/ml) SC SCH (20:42)
[2021-03-01] MEDS: MAGNESIUM SULFATE 1GM/100ML 100 ML IV SCH ×2 (22:20→23:24)
[2021-03-02] VITALS (58 sets, daily range): BP systolic 79–117; BP diastolic 34–47
[2021-03-02 00:22] LABS: Albumin 2.7 g/dL (3.4-5.0); BUN/Creatinine Ratio 8.5; Calcium 6.8 mg/dL (8.5-10.1); Magnesium 2.8 mg/dL (1.6-2.6); Potassium 4.8 mmol/L (3.5-5.1)
[2021-03-02 00:24] LABS: Bilirubin, Total 1.6 mg/dL (0.2-1.0)
[2021-03-02] MEDS: ACCU-CHEK COMFORT CURVE STRIP VI SCH ×11 (00:56→20:43)
[2021-03-02] MEDS: InsuLIN REG 1unit/0.01ml Soln (100units/ml) SC SCH ×3 (00:59→08:00)
[2021-03-02] MEDS ORDERED: DOPamine 1600MCG/ML D5W 250 ML IV ONE ×3 (03:06→11:50)
[2021-03-02 07:23] LABS: Basophils # (auto) 0 10 ^3/uL (0-0.2); Basophils % (auto) 0.1 % (0.0-2.0); Eosinophils # (auto) 0 10 ^3/uL (0-0.8); Hematocrit 38.6 % (41.0-53.0); Hemoglobin 12.1 g/dL (13.5-17.5); Lymphocytes # (auto) 1.1 10 ^3/uL (0.4-5.4); Lymphocytes % (auto) 7.1 % (10.0-50.0); Mean Corpuscular Hemoglobin 29.8 pg (28.0-32.0); Mean Corpuscular Hgb Conc. 31.4 g/dL (32.0-36.0); Mean Corpuscular Volume 94.8 fL (80.0-100.0); Monocytes # (auto) 1.3 10 ^3/uL (0-1.3); Monocytes % (auto) 8.2 % (0.0-12.0); Neutrophils # (auto) 13.2 10 ^3/uL (1.6-8.6); Neutrophils % (auto) 84.6 % (37.0-80.0); Nucleated Red Blood Cells % 0.1 %; Red Blood Cells 4.07 10^6/uL (4.5-5.90); Red Cell Distribution Width 14.7 % (11.8-14.3); White Blood Cell 15.6 10^3/uL (4.4-10.8)
[2021-03-02] MEDS: SODIUM BICARBONATE 50ML VIAL 150 ML in SOD CHL 0.45% 1,000 ML IV SCH (07:25)
[2021-03-02 08:17] LABS: Albumin 2.6 g/dL (3.4-5.0); Calcium 6.8 mg/dL (8.5-10.1); Potassium 4.6 mmol/L (3.5-5.1)
[2021-03-02 08:28] LABS: BUN/Creatinine Ratio 8.6; Bilirubin, Total 1.9 mg/dL (0.2-1.0); Total Protein 5.1 g/dL (6.4-8.2)
[2021-03-02] MEDS: MIDAZOLAM DRIP 50 mg/50mL 50 ML IV SCH (08:37)
[2021-03-02] MEDS: SODIUM CHLORIDE 0.9% 1,000 ML IV SCH ×4 (08:45→20:19)
[2021-03-02] MEDS ORDERED: INSULIN LANTUS (GLARGINE) 1 /0.01ml (100units/ml) SC ONE (09:30)
[2021-03-02] MEDS ORDERED: InsuLIN R (HUMAN) 100 UNITS in SODIUM CHL 0.9% 99 ML IV SCH ×3 (09:30→15:30)
[2021-03-02] MEDS ORDERED: DEXTROSE (50%) 50ML SYRG IV PRN (09:30)
[2021-03-02] MEDS: NOREPINEPHRINE 8 MG/250ML KIT 250 ML IV SCH ×2 (09:32→21:53)
[2021-03-02] MEDS ORDERED: INSULIN LANTUS (GLARGINE) 1 /0.01ml (100units/ml) SC SCH (10:00)
[2021-03-02] MEDS: PHENYLEPHRINE IV 250 ML IV SCH (10:31)
[2021-03-02] MEDS: HYDROCORTISONE SOD SUCC 100 MG/2ML INJ VIAL IV SCH (11:14)
[2021-03-02] MEDS: ENOXAPARIN SOD 40 MG/0.4 ML SYRINGE SC SCH (11:15)
[2021-03-02 11:21] LABS: Basophils # (auto) 0 10 ^3/uL (0-0.2); Basophils % (auto) 0.1 % (0.0-2.0); Eosinophils # (auto) 0 10 ^3/uL (0-0.8); Hematocrit 37.6 % (41.0-53.0); Lymphocytes # (auto) 1.1 10 ^3/uL (0.4-5.4); Lymphocytes % (auto) 7.5 % (10.0-50.0); Mean Corpuscular Hemoglobin 29.7 pg (28.0-32.0); Mean Corpuscular Volume 92.9 fL (80.0-100.0); Monocytes % (auto) 7.1 % (0.0-12.0); Neutrophils % (auto) 85.3 % (37.0-80.0); Nucleated Red Blood Cells % 0.1 %; Red Blood Cells 4.04 10^6/uL (4.5-5.90); Red Cell Distribution Width 14.5 % (11.8-14.3)
[2021-03-02 11:37] LABS: Magnesium 2.4 mg/dL (1.6-2.6)
[2021-03-02 11:46] LABS: Albumin 2.5 g/dL (3.4-5.0); Calcium 6.6 mg/dL (8.5-10.1); Potassium 4.4 mmol/L (3.5-5.1)
[2021-03-02 11:55] LABS: BUN/Creatinine Ratio 8.4; Bilirubin, Total 2.2 mg/dL (0.2-1.0)
[2021-03-02] MEDS ORDERED: RISP1TAB63 PO (12:41)
[2021-03-02] MEDS: DOPamine 1600MCG/ML D5W 250 ML IV SCH ×3 (14:15→23:42)
[2021-03-02] MEDS ORDERED: EPINEPHrine HCL 250 ML IV SCH (14:15)
[2021-03-02] MEDS: VASOPRESSIN 50 UNITS in D5W 5% 247.5 ML IV SCH (14:23)
[2021-03-02] MEDS: InsuLIN R (HUMAN) 100 UNITS in SODIUM CHL 0.9% 99 ML IV SCH (17:05)
[2021-03-02 19:08] LABS: Calcium 6.3 mg/dL (8.5-10.1); Potassium 3.6 mmol/L (3.5-5.1)
[2021-03-02] MEDS: EPINEPHrine HCL 250 ML IV SCH (20:19)
[2021-03-03] VITALS (89 sets, daily range): BP systolic 76–121; BP diastolic 30–51
[2021-03-03] MEDS: VASOPRESSIN 50 UNITS in SODIUM CHL 0.9% 247.5 ML IV SCH ×3 (00:02→23:43)
[2021-03-03] MEDS: ACCU-CHEK COMFORT CURVE STRIP VI SCH ×7 (00:03→20:00)
[2021-03-03] MEDS: EPINEPHrine HCL 250 ML IV SCH (02:01)
[2021-03-03] MEDS: NOREPINEPHRINE 8 MG/250ML KIT 250 ML IV SCH ×3 (02:05→21:47)
[2021-03-03] MEDS: PHENYLEPHRINE IV 250 ML IV SCH ×6 (03:22→23:42)
[2021-03-03] MEDS: SODIUM CHLORIDE 0.9% 1,000 ML IV SCH ×5 (03:23→16:22)
[2021-03-03] MEDS: DOPamine 1600MCG/ML D5W 250 ML IV SCH (03:23)
[2021-03-03] MEDS ORDERED: InsuLIN REG 1unit/0.01ml Soln (100units/ml) ONE (06:18)
[2021-03-03] MEDS: SODIUM BICARBONATE 50ML VIAL 150 ML in SOD CHL 0.45% 1,000 ML IV SCH ×2 (08:00→09:50)
[2021-03-03] MEDS: InsuLIN R (HUMAN) 100 UNITS in SODIUM CHL 0.9% 99 ML IV SCH (08:03)
[2021-03-03] MEDS: SODIUM CHL 0.9% IV SCH ×3 (08:45→21:47)
[2021-03-03] MEDS ORDERED: DOPAMINE HCL IV SCH (08:45)
[2021-03-03] MEDS ORDERED: SODIUM CHL 0.9% IV SCH (08:45)
[2021-03-03] MEDS: DOPAMINE HCL IV SCH ×3 (08:45→21:47)
[2021-03-03] MEDS: ENOXAPARIN SOD 40 MG/0.4 ML SYRINGE SC SCH (10:00)
[2021-03-03] MEDS: MIDAZOLAM DRIP 50 mg/50mL 50 ML IV SCH ×2 (10:00→20:58)
[2021-03-03] MEDS: HYDROCORTISONE SOD SUCC 100 MG/2ML INJ VIAL IV SCH ×2 (10:00→16:07)
[2021-03-03] MEDS: INSULIN LANTUS (GLARGINE) 1 /0.01ml (100units/ml) SC SCH (10:00)
[2021-03-03 11:08] LABS: Basophils # (auto) 0 10 ^3/uL (0-0.2); Basophils % (auto) 0.3 % (0.0-2.0); Eosinophils # (auto) 0 10 ^3/uL (0-0.8); Hematocrit 37.6 % (41.0-53.0); Hemoglobin 12.4 g/dL (13.5-17.5); Lymphocytes % (auto) 8.2 % (10.0-50.0); Mean Corpuscular Hemoglobin 30.3 pg (28.0-32.0); Mean Corpuscular Volume 91.7 fL (80.0-100.0); Monocytes # (auto) 0.8 10 ^3/uL (0-1.3); Neutrophils # (auto) 10.6 10 ^3/uL (1.6-8.6); Neutrophils % (auto) 85.5 % (37.0-80.0); Nucleated Red Blood Cells % 0.1 %; Red Cell Distribution Width 14.9 % (11.8-14.3); White Blood Cell 12.5 10^3/uL (4.4-10.8)
[2021-03-03 11:21] LABS: Potassium 5.2 mmol/L (3.5-5.1)
[2021-03-03 11:28] LABS: BUN/Creatinine Ratio 8.9
[2021-03-03 11:40] LABS: Calcium 5.5 mg/dL (8.5-10.1)
[2021-03-03] MEDS ORDERED: DEXTROSE (50%) 50ML SYRG IV PRN (19:30)
[2021-03-03] MEDS: InsuLIN REG 1unit/0.01ml Soln (100units/ml) SC SCH (20:00)
[2021-03-03] MEDS ORDERED: [UNRECOGNIZED DRUG - OTHER] IV SCH (22:45)
[2021-03-04] VITALS (106 sets, daily range): BP systolic 80–112; BP diastolic 29–44
[2021-03-04] MEDS: MIDAZOLAM DRIP 50 mg/50mL 50 ML IV SCH ×3 (02:39→21:12)
[2021-03-04] MEDS: NOREPINEPHRINE 8 MG/250ML KIT 250 ML IV SCH ×3 (02:47→21:11)
[2021-03-04] MEDS: EPINEPHrine HCL 250 ML IV SCH ×2 (02:47→21:11)
[2021-03-04] MEDS: ACCU-CHEK COMFORT CURVE STRIP VI SCH ×6 (04:00→21:04)
[2021-03-04] MEDS: InsuLIN REG 1unit/0.01ml Soln (100units/ml) SC SCH ×5 (04:00→21:13)
[2021-03-04 04:23] LABS: Hematocrit 32.7 % (41.0-53.0); Hemoglobin 11.2 g/dL (13.5-17.5); Mean Corpuscular Hgb Conc. 34.3 g/dL (32.0-36.0); Mean Corpuscular Volume 87.5 fL (80.0-100.0); Red Blood Cells 3.74 10^6/uL (4.5-5.90); Red Cell Distribution Width 14.6 % (11.8-14.3); White Blood Cell 10.2 10^3/uL (4.4-10.8)
[2021-03-04 04:25] LABS: Albumin 1.8 g/dL (3.4-5.0); BUN/Creatinine Ratio 9.6; Potassium 5.1 mmol/L (3.5-5.1)
[2021-03-04 04:28] LABS: Bilirubin, Total 3.9 mg/dL (0.2-1.0)
[2021-03-04 04:34] LABS: Basophils % (manual) 0 (0.0-2.0); Blast Cells 0; Eosinophils % (manual) 0 (0-7); Metamyelocytes % 0; Promyelocytes % 0; Reactive Lymphocytes 0
[2021-03-04] MEDS: PHENYLEPHRINE IV 250 ML IV SCH ×2 (04:46→21:09)
[2021-03-04 04:50] LABS: Calcium 5.1 mg/dL (8.5-10.1)
[2021-03-04] MEDS ORDERED: CALCIUM GLUC IV ONE (06:15)
[2021-03-04] MEDS ORDERED: [UNRECOGNIZED DRUG - OTHER] IV ONE (06:15)
[2021-03-04] MEDS: PANTOPRAZOLE 40mg/50ML NS AE 50 ML IV SCH ×6 (06:28→17:50)
[2021-03-04 06:59] LABS: Band Neutrophils % (manual) 38; Lymphocytes % (manual) 7 (10.0-50.0); Monocytes % (manual) 6 (0-12); Myelocytes % 7
[2021-03-04] MEDS ORDERED: CALCIUM GLUC 1,000mg/50ml-NS 50 ML IV ONE ×2 (07:30→08:30)
[2021-03-04] MEDS ORDERED: CALCIUM GLUC 1,000mg/50ml-NS 100 ML IV ONE (07:40)
[2021-03-04] MEDS: ENOXAPARIN SOD 40 MG/0.4 ML SYRINGE SC SCH (08:31)
[2021-03-04] MEDS: HYDROCORTISONE SOD SUCC 100 MG/2ML INJ VIAL IV SCH (09:40)
[2021-03-04] MEDS: INSULIN LANTUS (GLARGINE) 1 /0.01ml (100units/ml) SC SCH (09:42)
[2021-03-04] MEDS: DOPamine 3200MCG/ML 250 ML IV SCH ×2 (10:30→10:53)
[2021-03-04] MEDS ORDERED: DOPamine 1600MCG/ML D5W 250 ML IV SCH (11:00)
[2021-03-04] MEDS: ALBUMIN 25% 50 ML IV SCH ×6 (11:15→16:55)
[2021-03-04] MEDS ORDERED: VASOPRESSIN 20 UNIT/ML ONE (11:49)
[2021-03-04 13:59] LABS: Hepatitis C Antibody Negative (Negative)
[2021-03-04] MEDS: CALCIUM ACETATE 667 MG CAP PO SCH ×2 (14:00→22:00)
[2021-03-04] MEDS ORDERED: fentaNYL Drip 2500mCg/250mlNS 250 ML IV ONE (19:39)
[2021-03-04] MEDS: MORPHINE SULFATE 4 MG/ML SYR/VIAL IV PRN ×2 (20:00→22:04)
[2021-03-04] MEDS ORDERED: fentaNYL Drip 2500mCg/250mlNS 250 ML IV SCH (20:30)
[2021-03-04] MEDS: SODIUM BICARBONATE 50ML VIAL 50 ML in SOD CHL 0.45% 1,000 ML IV SCH ×2 (21:03→21:20)
[2021-03-04] MEDS ORDERED: NOREPINEPHRINE BITARTRATE 32 MG in SODIUM CHL 0.9% 218 ML IV SCH (21:45)
[2021-03-04] MEDS: PHENYLEPHRINE INJ 80 MG in SODIUM CHL 0.9% 242 ML IV SCH (23:26)
[2021-03-04] MEDS: VASOPRESSIN 50 UNITS in SODIUM CHL 0.9% 247.5 ML IV SCH (23:47)
[2021-03-05] VITALS (32 sets, daily range): BP systolic 76–93; BP diastolic 29–37
[2021-03-05] MEDS: InsuLIN REG 1unit/0.01ml Soln (100units/ml) SC SCH ×2 (00:01→04:00)
[2021-03-05] MEDS: ACCU-CHEK COMFORT CURVE STRIP VI SCH ×2 (00:01→05:44)
[2021-03-05] MEDS: PANTOPRAZOLE 40mg/50ML NS AE 50 ML IV SCH ×2 (00:05→05:52)
[2021-03-05 01:53] LABS: Sodium Urine 132 mmol/L (40-220)
[2021-03-05 01:54] LABS: Protein, Urine 682.9 mg/dL (0.0-11.9)
[2021-03-05] MEDS ORDERED: DOPamine 3200MCG/ML 250 ML IV SCH (02:45)
[2021-03-05 04:34] LABS: Creatinine, Urine < 30 mg/dL (30.0-125.0)
[2021-03-05] MEDS: CALCIUM ACETATE 667 MG CAP PO SCH (05:44)
[2021-03-05] MEDS: SODIUM BICARBONATE 50ML VIAL 50 ML in SOD CHL 0.45% 1,000 ML IV SCH (05:44)
[2021-03-05] MEDS: MIDAZOLAM DRIP 50 mg/50mL 50 ML IV SCH (05:52)
[2021-03-05] MEDS: MORPHINE SULFATE 4 MG/ML SYR/VIAL IV PRN (05:52)
[2021-03-05] MEDS ORDERED: PHENYLEPHRINE IV 250 ML IV ONE (05:56)
[2021-03-05] MEDS ORDERED: PHENYLEPHRINE HCL 10 MG/ML VL ONE (05:56)
[2021-03-05] MEDS: PHENYLEPHRINE INJ 80 MG in SODIUM CHL 0.9% 242 ML IV SCH (06:07)
[2021-03-05] MEDS ORDERED: LORazepam 2MG/ML-1ML VIAL IV PRN (08:45)
[2021-03-05] MEDS ORDERED: MORPHINE SULFATE INJECTION 2 MG/ML SYRG IV PRN (08:45)
== END 2021-03-05 13:20 | DRG 817 ==
LOC: ER 09:15 → EDBD 09:15 → TELE 17:50 → ICU WEST 03-02 08:52
PROVIDERS: ADMIT Internal Medicine; ATTEND Internal Medicine
PROC: 5A1945Z Respiratory Ventilation, 24-96 Consecutive Hours (ICD-10-PCS; principal; 2021-03-01)
PROC: 0BH17EZ Insertion of Endotracheal Airway into Trachea, Via Natural or Artificial Opening (ICD-10-PCS; 2021-03-01)
PROC: 02HV33Z Insertion of Infusion Device into Superior Vena Cava, Percutaneous Approach (ICD-10-PCS; 2021-03-01)
PROC: 4A143B0 Monitoring of Venous Pressure, Central, Percutaneous Approach (ICD-10-PCS; 2021-03-01)
DX: T43.622A Poisoning by amphetamines, intentional self-harm, initial encounter (principal); N17.0 Acute kidney failure with tubular necrosis; J96.01 Acute respiratory failure with hypoxia; E11.10 Type 2 diabetes mellitus with ketoacidosis without coma; R57.9 Shock, unspecified; G92.9 Unspecified toxic encephalopathy; K92.2 Gastrointestinal hemorrhage, unspecified; F31.9 Bipolar disorder, unspecified; F20.9 Schizophrenia, unspecified; D64.9 Anemia, unspecified; E66.01 Morbid (severe) obesity due to excess calories; F15.10 Other stimulant abuse, uncomplicated; F17.210 Nicotine dependence, cigarettes, uncomplicated; Z81.8 Family history of other mental and behavioral disorders; Z82.5 Family history of asthma and other chronic lower respiratory diseases; Z91.51 Personal history of suicidal behavior; Y92.89 Other specified places as the place of occurrence of the external cause; Z20.822 Contact with and (suspected) exposure to COVID-19; Z68.34 Body mass index [BMI] 34.0-34.9, adult; Z79.84 Long term (current) use of oral hypoglycemic drugs
CPT/HCPCS: 31500; 36415; 36556; 36600; 51702; 70450; 71045; 76775; 80048; 80053; 80307; 80320; 80329; 81001; 82010; 82306; 82570; 82805; 82962; 83615; 83735; 83970; 84100; 84156; 84300; 84484; 85007; 85025; 85027; 86803; 87040; 87070; 87081; 87205; 87340; 87426; 93005; 93306; 94002; 94003; 95819; 96361; 96365; 96366; 96367; 96375; 99291; G0378; J0171; J1265; J1815; J2250; J7060